=== PATIENT | male | born 1955 | race African-American/Black ===

== ENCOUNTER 2016-08-02 14:37 | Emergency (ER) | payer MEDICAID ==
[~2016-08-02] VITALS: Ht 177.8 cm; Wt 80.0 kg
[~2016-08-02 14:37] MED LIST: GABA-531 PO; INSU3INS6 SUBCUT; LOSA1TAB34 PO; METH10TA2 PO; SIMV40TA5 PO
[2016-08-02] MEDS ORDERED: SODIUM CHLORIDE 0.9% 1,000 ML IV ONE (14:51)
[2016-08-02] MEDS ORDERED: ACETAMINOPHEN WITH CODEINE 300/30MG TABLET PO ONE (15:45)
[2016-08-02 15:49] LABS: PROTHROMBIN TIME 10.1 sec
[2016-08-02 15:50] LABS: BASOPHILS % 0.8 % (0.0-2.0); EOSINOPHILS % 1.1 % (0.0-5.0); HEMATOCRIT. 40.6 % (42.0-52.0); LYMPHOCYTES % 26.7 % (20.0-50.0); MEAN CORPUSCULAR HEMOGLOBIN 28.5 pg (28.0-32.0); MEAN CORPUSCULAR HGB CONC 32.1 g/dL (31.0-37.0); MEAN CORPUSCULAR VOLUME 88.6 fL (80.0-94.0); MEAN PLATELET VOLUME 10.1 fl (7.4-10.4); MONOCYTES % 5.2 % (2.0-8.0); NEUTROPHILS % 66.2 % (40.0-76.0); PLATELET 146 x1000/uL (130-400); RED BLOOD CELL COUNT 4.58 mill/uL (4.7-6.1); RED CELL DISTRIBUTION WIDTH 13.1 % (11.6-14.6); WHITE BLOOD COUNT 7.4 x1000/uL (4.5-11.0)
[2016-08-02 15:56] LABS: ALANINE AMINOTRANSFERASE 25 IU/L (13-61); ALBUMIN 3.3 g/dL (3.4-5.0); ANION GAP 14; CARBON DIOXIDE 25 mEq/L (21-32); CHLORIDE 99 mEq/L (98-107); INDEX HEMOLYSI 1 (1-3); INDEX ICTERIC 1 (1-4); INDEX LIPEMIC 1 (1-3); UREA NITROGEN BLOOD 32 mg/dL (7-21); eGFR > 60 mL/min (>60)
[2016-08-02 15:59] LABS: BETA HYDROXYBUTYRATE 2.9 mMol/L (0.0-0.3)
[2016-08-02] MEDS ORDERED: INSULIN REGULAR (HUMULIN R) 300UNITS/3ML IV ONE (19:00)
[2016-08-02 20:30] VITALS: BP 125/70
== END 2016-08-02 21:23 | disposition home or self-care (01) ==
LOC: ER 15:29
DX: S20.229A Contusion of unspecified back wall of thorax, initial encounter (principal); R73.9 Hyperglycemia, unspecified; I10 Essential (primary) hypertension; E78.00 Pure hypercholesterolemia, unspecified; E11.65 Type 2 diabetes mellitus with hyperglycemia; M54.5 Low back pain; Z79.4 Long term (current) use of insulin; W19.XXXA Unspecified fall, initial encounter; Y93.89 Activity, other specified; Y92.89 Other specified places as the place of occurrence of the external cause; Y99.8 Other external cause status; Z98.890 Other specified postprocedural states
CPT/HCPCS: 36415; 72131; 80053; 82010; 82962; 85025; 85610; 93005; 96360; 96361; 99285; J7030; Z7610